=== PATIENT | female | born 1960 | race Caucasian/White ===

== ENCOUNTER 2020-05-26 06:18 | Day surgery (SDC) | payer MEDICAID ==
[2020-05-26] MEDS ORDERED: Sodium Chloride 0.9% 1,000 ML IV SCH (07:00)
[2020-05-26] MEDS ORDERED: fentaNYL 100 MCG/2 ML SDV ONE (07:25)
[2020-05-26] MEDS ORDERED: Propofol 200 MG/20 ML SDV ONE (07:25)
[2020-05-26] MEDS ORDERED: Midazolam 1 MG/ML 2 ML SDV ONE (07:25)
--- NOTE | 2020-05-26 14:28 | OR ---
DATE OF PROCEDURE: 05/26/2020 SURGEON: Kolton Connors MD PROCEDURES: 1. Esophagogastroduodenoscopy. 2. Colonoscopy. FINDINGS: 1. Normal colonoscopy. 2. Biopsies performed for evaluation of a history of Silva's esophagus. PREOPERATIVE DIAGNOSES: Silva's esophagus/screening colonoscopy. POSTOPERATIVE DIAGNOSES: Silva's esophagus/screening colonoscopy. RISKS: Risks, benefits, alternatives, and limitations including but not limited to infection, bleeding, perforation, false positives and false negatives, and other risks not listed here were explained to the patient who wished to proceed. PROCEDURE IN DETAIL: The patient was placed in left lateral decubitus position. The EGD scope was introduced and advanced atraumatically to second part of the duodenum. No evidence of duodenitis or ulceration. At the GE junction, there was a very mild inflammation. However, the patient did have a history of Silva's esophagus. Therefore, she was biopsied in all 4 quadrants. The air was removed from the stomach. The remainder of esophagus inspected without abnormality. Digital rectal exam was performed next. Scope was introduced and advanced atraumatically to ileocecal valve. Photo was taken. The scope was brought back to the ascending, transverse, descending colon, and retroflexed. No evidence of old or new blood. No masses. No polyps. No colitis. No abnormalities. No abnormalities on retroflexion. Greater than 8 minutes were spent removing the scope. The prep was acceptable, approximately 90% of luminal surface could be seen. The patient tolerated the procedure well. Kolton Connors MD /[id number]
--- NOTE | 2020-05-26 14:40 | OR ---
DATE OF PROCEDURE: 05/26/2020 SURGEON: Kolton Connors MD PROCEDURE: Colonoscopy. FINDINGS: Normal colonoscopy. PREOPERATIVE DIAGNOSIS: Screening colonoscopy. POSTOPERATIVE DIAGNOSIS: Screening colonoscopy. RISKS: Risks, benefits, alternatives, and limitations including but not limited to infection, bleeding, perforation, and false positives and false negatives were explained to the patient and they wished to proceed. PROCEDURE IN DETAIL: The patient was placed in left lateral decubitus position. Digital rectal exam was performed without abnormality. Scope was introduced and advanced atraumatically to the ileocecal valve. A photo was taken. The scope was brought back to the ascending, transverse, and descending colon and retroflexed. No evidence of old or new blood. No masses. No polyps. No diverticulosis. No colitis. No old or new blood. No abnormalities on retroflexion. Greater than 8 minutes was spent removing the scope. The prep was acceptable, approximately 90% of luminal surface could be seen. The patient tolerated the procedure well. Kolton Connors MD /[id number]
== END 2020-05-26 09:35 | disposition home or self-care (01) ==
LOC: JP.SDS 06:18
PROVIDERS: ATTEND Surgery
DX: Z12.11 Encounter for screening for malignant neoplasm of colon (principal); E78.5 Hyperlipidemia, unspecified; E03.9 Hypothyroidism, unspecified
CPT/HCPCS: 45378; J2250; J2704; J3010; J7030